=== PATIENT | male | born 1980 | race Two or more races ===

== ENCOUNTER → 2025-01-04 | Outpatient (CLI) | payer OTHER, SELFPAY ==
--- NOTE | 2025-01-04 09:49 | XR_ITS ---
Examination: Shoulder,right, 3 views Technique: Shoulder AP internal rotation, AP external rotation, Y view shoulder, 3 views Exam date and time :January 04, 2025 0951 hours INDICATIONS: Patient fell 10 months ago with injury to the shoulder, shoulder pain. FINDINGS: No acute shoulder fracture, no dislocation No calcific tendinitis IMPRESSION: No shoulder fracture or dislocation
== END | disposition home or self-care (01) ==
PROVIDERS: PCP Physician Assistant; Referring Provider Family Medicine; Visit Provider Family Medicine
DX: S43.81XD Sprain of other specified parts of right shoulder girdle, subsequent encounter (principal); X58.XXXD Exposure to other specified factors, subsequent encounter
CPT/HCPCS: 73030